=== PATIENT | female | born 1985 | race Caucasian/White ===

== ENCOUNTER → 2016-08-21 | Outpatient (CLI) | payer OTHER ==
[~2016-08-21] MED LIST: LABE100 PO; OXYC1SOL5 PO; PREN0.01 PO
== END ==
LOC: HPND 09:54
PROVIDERS: ATTEND Obstetrics & Gynecology
DX: O09.212 Supervision of pregnancy with history of pre-term labor, second trimester (principal); O09.291 Supervision of pregnancy with other poor reproductive or obstetric history, first trimester; O34.211 Maternal care for low transverse scar from previous cesarean delivery; G43.909 Migraine, unspecified, not intractable, without status migrainosus
CPT/HCPCS: 36416; 76813

== ENCOUNTER → 2016-09-25 | Outpatient (CLI) | payer OTHER | LOC: HPND 08:29 | PROVIDERS: ATTEND Obstetrics & Gynecology | DX: O99.322 Drug use complicating pregnancy, second trimester (principal); O09.292 Supervision of pregnancy with other poor reproductive or obstetric history, second trimester | CPT/HCPCS: 76811 ==

== ENCOUNTER → 2016-10-23 | Outpatient (CLI) | payer OTHER | LOC: HPND 08:12 | PROVIDERS: ATTEND Obstetrics & Gynecology | DX: O09.299 Supervision of pregnancy with other poor reproductive or obstetric history, unspecified trimester (principal); O99.320 Drug use complicating pregnancy, unspecified trimester; O35.1XX0 Maternal care for (suspected) chromosomal abnormality in fetus, not applicable or unspecified; Z3A.00 Weeks of gestation of pregnancy not specified | CPT/HCPCS: 76816; 76825; 76827; 93325 ==

== ENCOUNTER 2017-01-13 10:46 | Observation (INO) | payer OTHER ==
[~2017-01-13] VITALS: Ht 167.6 cm; Wt 79.0 kg
[2017-01-13] MEDS ORDERED: ASPI1TAB57 PO (11:20)
[2017-01-13] MEDS ORDERED: DOCUSATE SODIUM 100 MG CAP PO PRN (11:30)
[2017-01-13] MEDS ORDERED: ONDANSETRON ODT 4 MG TAB PO PRN (11:30)
[2017-01-13] MEDS ORDERED: SODIUM CHLORIDE 0.9% FLUSH 5 ML FLUSH IV FLUSH PRN (11:30)
--- NOTE | 2017-01-13 11:38 | HHI.HP ---
HPI Chief Complaint High blood pressure and the frontal headache Date Seen: Jan 13, 2017 Time Seen: 11:25 Travel History International Travel<30 Days: No Contact w/Intl Traveler<30Days: No Known Affected Area: No History of Present Illness HPI The patient is 31-year-old white female previous [address] Calles for care. Patient presents because of high blood pressure noted today at home. She is detecting blood pressures in the 130s over 90s range. thru her she's from 110s over 60s up until last week when she started having blood pressure rise. She was probably more concerned about the development of frontal headache she's had that for a day or so. She has a history of migraine headaches and is had taken Maxalt for this even in with Dr. Lily king's permission. Today her frontal headache has gotten worse and she presented for evaluation. She denies bleeding or leakage of fluid. Baby is active. heart rate tracing is reactive for 33 weeks. No contractions seen ,. Pt does take 1 baby ASA a day for preeclampsia prevention Weeks Gestation: 33 Para: 1 : 2 Last Menstrual Period: Jan 13, 2017 History Obstetric History Obstetric History Patient has severe preeclampsia with her first and had a at 34 weeks Past Surgical History Narrative Surgical section Social History Alcohol Use: No Tobacco Use: No Substance Abuse: No Allergies-Medications (Allergen,Severity, Reaction): Coded Allergies: No Known Allergies (Unverified Adverse Reaction, Unknown, 01/13/17) Home Meds Reported Medications Aspirin DR (Aspirin 81) 81 Mg Tabdr, 81 MG PO DAILY, TAB 0 Refills 01/13/17 Discontinued Reported Medications Multivit/Min/Fol Ac/Iron/Pren ( Vit ( Plus)) Tab, 1 TAB PO DAILY, TAB 09/05/14 Discontinued Scripts Oxycodone W/ Acetaminophen (Oxycodone/Acetaminophen 5-325 mg/5Ml) 1 Tab Tab, 2 TAB PO Q4H Y for PAIN SCALE 5 TO 10, #60 TAB Prov:Aime Calles MD 09/11/14 Labetalol HCl (Trandate 100 mg Tab) 100 Mg Tab, 100 MG PO BID for hypertension, #60 TAB Prov:Aime Calles MD 09/11/14 Review of Systems General / Constitutional: No: Fever, Weight Gain, Chills, Other Eyes: No: Diploplia, Blurred Vision, Visual changes, Pain, Photophobia HENT: Headaches, No: Vertigo, Lightheadedness Cardiovascular: No: Irregular Rhythm, Chest Pain or Discomfort, Palpitations, Tachycardia, Syncope, Varicosities, Edema, Cyanosis Respiratory: No: Cough, Short of Breath, Other Gastrointestinal: No: Nausea, Vomiting, Diarrhea Genitourinary: No: Decreased Urinary Output, Oliguria Musculoskeletal: No: Limited ROM, Weakness, Cramping, Edema, Pain Skin: No Rash, No Itching, No Dryness, No Lumps, No Change in Pigmentation, No Change in Nails, No Alopecia, No Lesions Neurologic: No: Weakness, Dizziness, Syncope, Focal Abnormalities, Coordination Problem, Headache, Slurred Speech, Seizures Psychiatric: No: Depression, Suicidal Ideations, Homicidal Ideation Endocrine: No: Heat Intolerance, Cold Intolerance, Polydipsia, Polyuria, Other Physical Exam Narrative GENERAL: Well-nourished, well-developed patient. SKIN: Warm and dry. HEAD: Normocephalic and atraumatic. EYES: No scleral icterus. No injection or drainage. ENT: No nasal drainage noted. Mucous membranes pink. Airway patent. NECK: Supple, trachea midline. No JVD. CARDIOVASCULAR: Regular rate and rhythm without murmurs, gallops, or rubs. RESPIRATORY: Breath sounds equal bilaterally. No accessory muscle use. BREASTS: Bilateral exam showed no masses , no retractions, no nipple discharge. ABDOMEN/GI: Abdomen soft, non-tender, bowel sounds present, no rebound, no guarding Gravid to [-33] weeks size Fundal Height: [-33] GENITOURINARY: ] Membranes: [intact ] Uterine Contractions: [none-] FHT's: Category: [1-] Baseline: [133-] Reactive: [-yes] Variability: [-mod] Decels: [0-] EXTREMITIES: No cyanosis or edema. BACK: Nontender without obvious deformity. No CVA tenderness. NEUROLOGICAL: Awake and alert. Motor and sensory grossly within normal limits. Five out of 5 muscle strength in all muscle groups. Normal speech. DTRs 2+ Caprini VTE Risk Assessment Caprini VTE Risk Assessment: No/Low Risk (score <= 1) Caprini Risk Assessment Model Point Value = 1 Point Value = 2 Point Value = 3 Point Value = 5 Age 41-60 Minor surgery BMI > 25 kg/m2 Swollen legs Varicose veins or History of unexplained or recurrent spontaneous Oral contraceptives or hormone replacement Sepsis (< 1 month) Serious lung disease, including pneumonia (< 1 month) Abnormal pulmonary function Acute myocardial infarction Congestive heart failure (< 1 month) History of inflammatory bowel disease Medical patient at bed rest Age 61-74 Arthroscopic surgery Major open surgery (> 45 min) Laparoscopic surgery (> 45 min) Malignancy Confined to bed (> 72 hours) Immobilizing plaster cast Central venous access Age >= 75 History of VTE Family history of VTE Factor V Leiden Prothrombin [id number] Lupus anticoagulant Anticardiolipin antibodies Elevated serum homocysteine Heparin-induced thrombocytopenia Other congenital or acquired thrombophilia Stroke (< 1 month) Elective arthroplasty Hip, pelvis, or leg fracture Acute spinal cord injury (< 1 month) Prophylaxis Regimen Total Risk Factor Score Risk Level Prophylaxis Regimen 0-1 Low Early ambulation 2 Moderate Order ONE of the following: *Sequential Compression Device (SCD) *Heparin 5000 units SQ BID 3-4 Higher Order ONE of the following medications: *Heparin 5000 units SQ TID *Enoxaparin/Lovenox 40 mg SQ daily (WT < 150 kg, CrCl > 30 mL/min) *Enoxaparin/Lovenox 30 mg SQ daily (WT < 150 kg, CrCl > 10-29 mL/min) *Enoxaparin/Lovenox 30 mg SQ BID (WT < 150 kg, CrCl > 30 mL/min) AND/OR *Sequential Compression Device (SCD) 5 or more Highest Order ONE of the following medications: *Heparin 5000 units SQ TID (Preferred with Epidurals) *Enoxaparin/Lovenox 40 mg SQ daily (WT < 150 kg, CrCl > 30 mL/min) *Enoxaparin/Lovenox 30 mg SQ daily (WT < 150 kg, CrCl > 10-29 mL/min) *Enoxaparin/Lovenox 30 mg SQ BID (WT < 150 kg, CrCl > 30 mL/min) AND *Sequential Compression Device (SCD) Data Data Orders Orders Ob (2e) Additional Admit Info (01/13/17 11:15) Place In Observation (01/13/17 ) Vital Signs (Adult) Q5MX4,Q15MX4,Q30MX2,Q1H (01/13/17 11:15) Resp Pulse Oximetry (01/13/17 ) Activity Bed Rest (01/13/17 11:15) Intake + Output Q1H (01/13/17 11:15) Notify Dr. Campoverde (01/13/17 11:15) Heart CONTINUOUS (01/13/17 11:15) Urinary Catheter Management GONZALO.Q8H (01/13/17 11:15) ^ Check Deep Tendon Reflexes Q1H (01/13/17 11:15) Sodium Chloride 0.9% Flush (Ns Flush) (01/13/17 11:30) Sodium Chloride 0.9% Flush (Ns Flush) (01/13/17 21:00) Nifedipine (Procardia) (01/13/17 11:15) Nifedipine (Procardia) (01/13/17 11:45) Calcium Gluconate Inj (Calcium Gluconate (01/13/17 11:15) Acetaminophen (Tylenol) (01/13/17 11:30) Ondansetron Odt (Zofran Odt) (01/13/17 11:15) Docusate Sodium (Colace) (01/13/17 11:15) Bokxpnrr-Omi-Amhjj-Iron Prenat (Stuartna (01/14/17 09:00) Zolpidem (Ambien) (01/13/17 21:00) Cbc No Diff, Includes Plts (01/13/17 11:15) Comprehensive Metabolic Panel (01/13/17 11:15) Uric Acid (01/13/17 11:15) Urinalysis - C+S If Indicated (01/13/17 11:15) Total Protein 24hr Urine (01/13/17 11:15) Creatinine 24 Hr Urine (01/13/17 11:15) Assessment/Plan Assessment and Plan The patient is 31-year-old white female at [address] Lily king's who presents with elevated blood pressures today and developing frontal headache, her blood pressures at home and here in the 130s over 90s, currently do not have a urine sample to check for protein but will begin a 24-hour urine collection, she has no other symptoms or signs. She denies visual changes or right upper quadrant pain swelling. heart rate is reactive she is not ramila. Patient says she scheduled have an ultrasound done in [address] Calles's office Impression- -induced hypertension at 33 weeks in a patient that has a history of severe preeclampsia with her first baby and at 34 weeks for that problem, spell of frontal headache and has a history of frontal headaches with migraine characteristics Plan--23 observation for collection of a 24-hour urine for protein, check [facility] lab for blood work, and observe blood pressures. Jean Marcum II, MD Jan 13, 2017 11:38
[2017-01-13 11:52] LABS: HEMATOCRIT 37.2 % (35.0-46.0); MEAN CELL VOLUME 95.6 FL (80.0-100.0); MEAN CORPUSCULAR HEMOGLOBIN 32.9 PG (27.0-34.0); MEAN CORPUSCULAR HGB CONC 34.4 % (32.0-36.0); PLATELET COUNT 221 TH/MM3 (150-450); RED CELL DISTRIBUTION WIDTH 14.1 % (11.6-17.2); REVIEW FLAG FINAL
[2017-01-13] MEDS ORDERED: CALCIUM GLUCONATE 10% 1 GM/10 ML VIAL IV PUSH PRN (12:00)
[2017-01-13] MEDS ORDERED: NIFEdipine 10 MG CAP PO PRN ×2 (12:00)
[2017-01-13 12:12] LABS: ANION GAP 8 MEQ/L (5-15); AST (GOT) 14 U/L (15-37); BICARBONATE 24.6 MEQ/L (21.0-32.0); BLOOD UREA NITROGEN 7 MG/DL (7-18); CHLORIDE 105 MEQ/L (98-107); GLOMERULAR FILTRATION RATE 87 ML/MIN (>89); POTASSIUM 4.7 MEQ/L (3.5-5.1); SODIUM (NA) 138 MEQ/L (136-145); URIC ACID 4.4 MG/DL (2.6-6.0)
[2017-01-13 12:16] LABS: ALKALINE PHOSPHATASE 141 U/L (45-117); ALT (GPT) 24 U/L (10-53); TOTAL BILIRUBIN ADULT 0.3 MG/DL (0.2-1.0)
[2017-01-13] MEDS ORDERED: FERR1TAB37 PO (12:47)
[2017-01-13] MEDS ORDERED: Tylenol PO (12:49)
[2017-01-13] MEDS ORDERED: PNV11TAB PO (12:50)
[2017-01-13 13:08] LABS: BACTERIA, URINE OCC /hpf; BLOOD, URINE NEG (NEG); GLUCOSE,URINE NEG (NEG); HYALINE CAST, URINE 1 /lpf (RARE); KETONE, URINE NEG (NEG); NITRITE,URINE NEG (NEG); PH, URINE 6.5 (5.0-8.5); SQUAMOUS EPITHELIAL CELL URINE 3 /hpf (0-5); TRANSITIONAL EPI CELLS, URINE <1 /hpf; URINE COLOR YELLOW (YELLW/STRAW)
[2017-01-13 13:09] LABS: COMMENT (UR) CULT NOT INDICATED; CULTURE IF INDICATED CULT NOT INDICATED
[2017-01-13] MEDS: BETAMETHASONE SOD PHOS/ACETATE SUSP 30 MG/5 ML VIAL IM SCH (14:26)
[2017-01-13 15:37] VITALS: BP 122/89; PULSE 101; RESP 18; TEMP 98.7
[2017-01-13] MEDS: ACETAMINOPHEN 325 MG TAB PO PRN ×2 (15:48→22:05)
[2017-01-13 19:30] VITALS: RESP 18; TEMP 97.6
[2017-01-13 19:34] VITALS: BP 129/80; PULSE 110
[2017-01-13 19:35] VITALS: PULSE 108
[2017-01-13] MEDS ORDERED: SODIUM CHLORIDE 0.9% FLUSH 5 ML FLUSH IV FLUSH SCH (21:00)
[2017-01-13] MEDS ORDERED: ZOLPIDEM TARTRATE 5 MG TAB PO PRN (21:00)
[2017-01-13 22:02] VITALS: BP 123/72; PULSE 101
[2017-01-14] VITALS (13 sets, daily range): BP systolic 119–135; BP diastolic 74–82; PULSE 86–117; RESP 18; TEMP 97.6–97.8
[2017-01-14] MEDS: ACETAMINOPHEN 325 MG TAB PO PRN (04:21)
--- NOTE | 2017-01-14 07:36 | PD.OB.ANTE ---
Subjective Interval History Pt doing well, occ headache, no other co Objective Vital Signs Vital Signs Date Time Temp Pulse Resp B/P (MAP) Pulse Ox O2 Delivery O2 Flow Rate FiO2 01/14/17 04:11 97.7 89 119/74 (89) 01/14/17 04:10 18 01/14/17 00:31 86 121/77 (92) 01/14/17 00:30 97.6 01/13/17 22:02 101 123/72 (89) 01/13/17 19:35 108 01/13/17 19:34 110 129/80 (96) 01/13/17 19:30 18 01/13/17 19:30 97.6 01/13/17 15:37 98.7 01/13/17 15:37 101 18 122/89 (100) Lab & Micro Results Test 01/13/17 11:26 01/13/17 11:32 White Blood Count 14.0 TH/MM3 Red Blood Count 3.90 MIL/MM3 Hemoglobin 12.8 GM/DL Hematocrit 37.2 % Mean Corpuscular Volume 95.6 FL Mean Corpuscular Hemoglobin 32.9 PG Mean Corpuscular Hemoglobin Concent 34.4 % Red Cell Distribution Width 14.1 % Platelet Count 221 TH/MM3 Mean Platelet Volume 8.6 FL Blood Urea Nitrogen 7 MG/DL Creatinine 0.77 MG/DL Random Glucose 83 MG/DL Total Protein 7.3 GM/DL Albumin 2.7 GM/DL Calcium Level 9.5 MG/DL Uric Acid 4.4 MG/DL Alkaline Phosphatase 141 U/L Aspartate Amino Transf (AST/SGOT) 14 U/L Alanine Aminotransferase (ALT/SGPT) 24 U/L Total Bilirubin 0.3 MG/DL Sodium Level 138 MEQ/L Potassium Level 4.7 MEQ/L Chloride Level 105 MEQ/L Carbon Dioxide Level 24.6 MEQ/L Anion Gap 8 MEQ/L Estimat Glomerular Filtration Rate 87 ML/MIN Urine Color YELLOW Urine Turbidity HAZY Urine pH 6.5 Urine Specific Butterfield 1.012 Urine Protein TRACE mg/dL Urine Glucose (UA) NEG mg/dL Urine Ketones NEG mg/dL Urine Occult Blood NEG Urine Nitrite NEG Urine Bilirubin NEG Urine Urobilinogen LESS THAN 2.0 MG/DL Urine Leukocyte Esterase LARGE Urine RBC 2 /hpf Urine WBC 3 /hpf Urine Squamous Epithelial Cells 3 /hpf Urine Transitional Epithelial Cells <1 /hpf Urine Bacteria OCC /hpf Urine Hyaline Casts 1 /lpf Microscopic Urinalysis Comment CULT NOT INDICATED Physical Exam GENERAL: Well-nourished, well-developed patient. CARDIOVASCULAR: Regular rate and rhythm without murmurs, gallops, or rubs. RESPIRATORY: Breath sounds equal bilaterally. No accessory muscle use. ABDOMEN/GI: Abdomen soft, non-tender. Fundus: [-] GENITOURINARY: External Genitalia: intact and normal in appearance Cervix: [-] Dilatation: [-] Effacement: [-] Station: [-] Presentation: [-] Membranes: [-] Uterine Contractions: [-] FHT's: Category: [-] Baseline: [-] Reactive: [-] Variability: [-] Decels: [-] EXTREMITIES: No cyanosis or edema, non-tender, without signs of DVT. Assessment and Plan Assessment and Plan IUP at 33 + wks with hx of severe preeclampsia with slightly elevated BP yesterday and headache...work up so far entirely normal, will await 24 hour urine today, second dose of steroids today, will remain on bed rest and stop working at home if result ok, fioricet prn. Judy Krishnan MD Jan 14, 2017 07:36
[2017-01-14] MEDS ORDERED: MULTIVIT/MIN/PREN/FOL AC/IRON PRENATAL TAB PO SCH (09:00)
[2017-01-14] MEDS ORDERED: ACETAMIN 325 MG/BUTALBITAL 50 MG/CAFFEINE 40 MG TAB PO PRN (10:15)
[2017-01-14] MEDS ORDERED: ACET-898 PO (11:03)
[2017-01-14 13:35] LABS: CREAT 24 TIMED 50.9 MG/DL
[2017-01-14] MEDS: BETAMETHASONE SOD PHOS/ACETATE SUSP 30 MG/5 ML VIAL IM SCH (15:00)
[2017-01-14] MEDS ORDERED: BUTA1CAP PO (16:09)
== END 2017-01-14 16:34 | disposition home or self-care (01) ==
LOC: HOBED 10:46 → H2EA 11:20
PROVIDERS: ADMIT Obstetrics & Gynecology; ATTEND Obstetrics & Gynecology
DX: O13.3 Gestational [pregnancy-induced] hypertension without significant proteinuria, third trimester (principal); Z3A.33 33 weeks gestation of pregnancy; R51 Headache
CPT/HCPCS: 36415; 76816; 76819; 76820; 80053; 81001; 82570; 84157; 84550; 85027; 96372; 99285; G0378; J0702

== ENCOUNTER 2017-01-21 17:47 | Inpatient (IN) | payer OTHER ==
[2017-01-21] VITALS (13 sets, daily range): BP systolic 107–148; BP diastolic 60–105; PULSE 75–92; RESP 18–20; TEMP 97.9; O2SAT 100
[~2017-01-21] VITALS: Ht 167.6 cm; Wt 79.5 kg
[2017-01-21] MEDS: LACTATED RINGER'S 1000 ML INJ 1,000 ML IV SCH ×3 (13:04→23:04)
[~2017-01-21 17:47] MED LIST changes: +BUTA1CAP PO; -LABE100 PO; -OXYC1SOL5 PO; +PNV11TAB PO; -PREN0.01 PO
[2017-01-21] MEDS ORDERED: OXYTOCIN 30 UNITS-500ML PREMIX 500 ML IV PRN (18:15)
[2017-01-21] MEDS ORDERED: ACETAMIN 325 MG/BUTALBITAL 50 MG/CAFFEINE 40 MG TAB PO ONE (19:45)
[2017-01-21 20:01] LABS: HEMATOCRIT 37.1 % (35.0-46.0); MEAN CORPUSCULAR HEMOGLOBIN 32.3 PG (27.0-34.0); MEAN CORPUSCULAR HGB CONC 34.4 % (32.0-36.0); PLATELET COUNT 333 TH/MM3 (150-450); RED BLOOD COUNT 3.95 MIL/MM3 (4.00-5.30); RED CELL DISTRIBUTION WIDTH 13.9 % (11.6-17.2); WHITE BLOOD COUNT 12.6 TH/MM3 (4.0-11.0)
[2017-01-21 20:12] LABS: BACTERIA, URINE RARE /hpf; BLOOD, URINE NEG (NEG); COMMENT (UR) CULT NOT INDICATED; CULTURE IF INDICATED CULT NOT INDICATED; GLUCOSE,URINE NEG (NEG); KETONE, URINE NEG (NEG); MUCUS URINE FEW /lpf (OCC); NITRITE,URINE NEG (NEG); PH, URINE 6.5 (5.0-8.5); SQUAMOUS EPITHELIAL CELL URINE 2 /hpf (0-5); URINE COLOR YELLOW (YELLW/STRAW)
[2017-01-21 20:17] LABS: REVIEW FLAG FINAL
[2017-01-21 20:21] LABS: ANION GAP 13 MEQ/L (5-15); AST (GOT) 15 U/L (15-37); BICARBONATE 20.1 MEQ/L (21.0-32.0); BLOOD UREA NITROGEN 10 MG/DL (7-18); CHLORIDE 103 MEQ/L (98-107); GLOMERULAR FILTRATION RATE 81 ML/MIN (>89); SODIUM (NA) 136 MEQ/L (136-145)
[2017-01-21 20:24] LABS: ALKALINE PHOSPHATASE 149 U/L (45-117); ALT (GPT) 17 U/L (10-53); TOTAL BILIRUBIN ADULT 0.2 MG/DL (0.2-1.0)
[2017-01-21 20:39] LABS: URIC ACID 5.3 MG/DL (2.6-6.0)
[2017-01-21] MEDS ORDERED: LACTATED RINGER'S 1000 ML INJ 1,000 ML IV SCH (20:51)
[2017-01-21] MEDS ORDERED: LACTATED RINGER'S 1000 ML INJ 1,000 ML IV ONE (21:34)
[2017-01-21] MEDS ORDERED: CALCIUM GLUCONATE 10% 1 GM/10 ML VIAL IV PUSH PRN (21:45)
[2017-01-21] MEDS ORDERED: KETOROLAC TROMETHAMINE 60 MG/2 ML (IM) VIAL IM PRN (21:45)
[2017-01-21] MEDS ORDERED: OXYTOCIN 30 UNITS-500ML PREMIX 500 ML IV ONE (21:45)
[2017-01-21] MEDS ORDERED: SODIUM CHLORIDE 0.9% FLUSH 10 ML FLUSH IV FLUSH PRN (21:45)
[2017-01-21] MEDS ORDERED: MAGNESIUM SULFATE 4 GM PREMIX 100 ML IV ONE (21:45)
[2017-01-21] MEDS ORDERED: DOCUSATE SODIUM 50 MG/SENNA 8.6 MG TAB PO PRN (21:45)
[2017-01-21] MEDS ORDERED: ZOLPIDEM TARTRATE 5 MG TAB PO PRN (21:45)
[2017-01-21] MEDS ORDERED: LABETALOL HCL 100 MG/20 ML VIAL IV PUSH PRN ×2 (21:45→22:00)
[2017-01-21] MEDS ORDERED: SIMETHICONE 80 MG CHEWABLE TAB PO PRN (21:45)
[2017-01-21] MEDS: ACETAMINOPHEN 1000 MG/100 ML VIAL IV SCH (21:45)
[2017-01-21] MEDS ORDERED: NIFEdipine 10 MG CAP PO PRN ×3 (21:45→22:30)
[2017-01-21] MEDS ORDERED: hydrALAZINE HCL 20 MG/ML VIAL IV PUSH PRN (21:45)
[2017-01-21] MEDS ORDERED: MEASLES, MUMPS, RUBELLA VACCINE 0.5 ML VIAL SQ ONE (21:45)
[2017-01-21] MEDS ORDERED: oxyCODONE/ACETAMINOPHEN 5 MG/325 MG TAB PO PRN ×2 (21:45)
[2017-01-21] MEDS ORDERED: ACETAMINOPHEN 1000 MG/100 ML 100 ML IV ONE (21:48)
--- NOTE | 2017-01-21 22:11 | MH ---
cc: ARABELLA AHMADI DATE OF ADMISSION 01/21/2017 ADMISSION DIAGNOSIS at 35 weeks, severe preeclampsia, previous . HISTORY OF PRESENT ILLNESS The patient is a 31-year-old white female para 0-1-0-1, LMP of 05/20/2016, EDC of 02/24/2017 by dates, 02/27/2017 by ultrasound. Her first delivery was by at 34-35 weeks for severe preeclampsia characterized by severe headache. She developed an increase in blood pressure, was admitted here for observation on 01/13/2017. Her labs were normal except for 24-hour urine showing protein of 491 mg in 24 hours. She was given steroids x2, discharged home on bedrest. She awoke yesterday morning with severe headache. She took maxalt with only relief. Took it again last night and awoke this morning with persistent left-sided headache and this failed to improve with Tylenol, Fioricet, hydration and caffeine. It was very reminiscent of the severe headache she had with her last that prompted delivery. Her blood pressure is in the 130s over 100 and 140/90 range. She denies visual changes, abdominal pain or edema. She had one episode of nausea and vomiting yesterday. She had some loose stools attributed to Mylanta. PAST MEDICAL HISTORY Previous surgery in 2014 for severe preeclampsia. ALLERGIES NONE. TRANSFUSIONS None. PAST MEDICAL HISTORY Migraines. SOCIAL HISTORY She is . 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 Alcohol, tobacco and drugs are none. FAMILY HISTORY Noncontributory. PHYSICAL EXAMINATION GENERAL: Reveals a gravid white female with headache discomfort left frontal. HEENT: Exam is normal. CHEST: The chest is clear. HEART: Regular rate. . ABDOMEN: Gravid. EFW of 2500 grams. PELVIC: Examination deferred. EXTREMITIES: Normal. Reflexes 2+ and equal. IMAGING Ultrasounds have shown appropriate growth. She has been on baby aspirin prophylaxis. Placenta is posterior. PLAN I recommended that we proceed with delivery. She has been n.p.o. for over 8 hours. I explained the risks of severe preeclampsia with stroke, demise, and feel the risk of prematurity is outweighed by the risk of severe preeclampsia and she would like to proceed. MD SHANICE Hilton/KK /9:30 PM /9:44 PM
--- NOTE | 2017-01-21 22:29 | PD ---
HPI Chief Complaint Headache Date Seen: Jan 21, 2017 Time Seen: 19:45 Travel History International Travel<30 Days: No Contact w/Intl Traveler<30Days: No Known Affected Area: No History of Present Illness HPI 31-year-old , IUP at 34.5 care complicated by history of preeclampsia with delivery at 35 weeks with prior , preeclampsia diagnosed 01/13/17, history of migraine headaches The patient presents reporting a persistent headache that started yesterday morning. She reports she woke up with a headache. She tried drinking caffeine without relief. The 10:00 last night she took Maxalt which caused her headache to resolve however she woke up with a headache at 7 AM citric Maxalt again. She reports that the headache resolved until 9 AM when it returned. She took Tylenol thousand milligrams, followed by Fioricet about an hour later after the return of the headache but without any result. She continued drink caffeine without improvement of the headache. She denies any epigastric pain, right upper quadrant pain. She denies any visual changes. She reports good movement. She denies any leaking of fluid, vaginal bleeding or painful contractions. Weeks Gestation: 34 Para: 1 : 2 History Past Medical History Medical History: Denies Significant Hx Obstetric History Obstetric History 101 delivery at 35 weeks for preeclampsia Past Surgical History Narrative Surgical delivery 1 Family History Narrative Family History Dementia Social History Alcohol Use: No Tobacco Use: No Substance Abuse: No Allergies-Medications (Allergen,Severity, Reaction): Coded Allergies: No Known Allergies (Unverified Allergy, Unknown, 01/13/17) Home Meds Reported Medications Ezmcxzjrwb-Ldspfnuibhhiw-Mfynirte (Fioricet) 50-300-40 Mg Cap, 1 CAP PO Q4-6H Y for HEADACHE, CAP 0 Refills 01/14/17 Pvb900/FA/Omega3/Dha/Fish Oil ( Gummies) 400 Mcg-32.5 Mg (25 Mg-7.5 Mg) Tab.chew, 2 CHEW PO DAILY 01/13/17 Discontinued Reported Medications Acetaminophen (Acetaminophen Extra Strength) 500 Mg Tablet, 500 MG PO Q4HR Y for HEADACHE 01/14/17 Ferrous Sulfate (Slow Fe) 142 Mg (45 Mg Iron) Tablet.er, 1 TAB PO DAILY 01/13/[address] (Aspirin 81) 81 Mg Tabdr, 81 MG PO DAILY, TAB 0 Refills 01/13/17 Review of Systems Except as stated in HPI: all other systems reviewed are Neg Neurologic: Headache Physical Exam Vital Signs Date Time Temp Pulse Resp B/P (MAP) Pulse Ox O2 Delivery O2 Flow Rate FiO2 01/21/17 21:15 18 01/21/17 20:45 18 01/21/17 20:45 80 148/105 (119) 01/21/17 20:30 86 132/93 (106) 01/21/17 20:15 86 18 131/103 (112) 01/21/17 20:00 92 138/96 (110) 01/21/17 19:45 91 18 128/96 (107) 01/21/17 19:37 88 134/97 (109) 01/21/17 19:15 18 Narrative GENERAL: Well-nourished, well-developed patient. SKIN: Warm and dry. HEAD: Normocephalic and atraumatic. EYES: No scleral icterus. No injection or drainage. ENT: No nasal drainage noted. Mucous membranes pink. Airway patent. NECK: Supple, trachea midline. No JVD. CARDIOVASCULAR: Regular rate and rhythm without murmurs, gallops, or rubs. RESPIRATORY: Breath sounds equal bilaterally. No accessory muscle use. BREASTS: Deferred ABDOMEN/GI: Abdomen soft, non-tender, bowel sounds present, no rebound, no guarding Gravid GENITOURINARY: Deferred FHT's: heart tones with baseline in the 130s, moderate long-term variability, good accelerations, no decelerations with a reactive NST and category 1 tracing EXTREMITIES: No cyanosis or edema. BACK: Nontender without obvious deformity. No CVA tenderness. NEUROLOGICAL: Awake and alert. Motor and sensory grossly within normal limits. Five out of 5 muscle strength in all muscle groups. Normal speech. Psychiatric: Grossly normal memory and affect Muscle skeletal: Grossly normal range of motion, gait, muscle strength Data Data Orders Orders Vital Signs (Adult) .ON ADMISSION (01/21/17 18:57) ^ Labor Status (01/21/17 18:57) Urinalysis - C+S If Indicated (01/21/17 18:57) ^ Non Stress Test (01/21/17 18:57) Cbc No Diff, Includes Plts (01/21/17 18:57) Comprehensive Metabolic Panel (01/21/17 18:57) Uric Acid (01/21/17 18:57) Zvhm-Nyxem-Bkze 325-50-40 Mg (Fioricet 3 (01/21/17 19:45) Type And Screen (01/21/17 20:51) Lactated Ringer's 1000 Ml Inj (Lr 1000 M (01/21/17 20:51) Ob (2e) Additional Admit Info (01/21/17 21:27) Admit To Inpatient (01/21/17 ) Vital Signs (Adult) .ON ADMISSION (01/21/17 21:34) Activity Oob Ad Sussy (01/21/17 21:34) Heart (01/21/17 21:34) Urinary Catheter Management GONZALO.Q8H (01/21/17 21:34) ^ Preps (01/21/17 21:34) Scd / Surya / Foot Pump GONZALO.QSHIFT (01/21/17 21:34) Lactated Ringer's 1000 Ml Inj (Lr 1000 M (01/21/17 21:34) Lactated Ringer's 1000 Ml Inj (Lr 1000 M (01/21/17 22:04) Cefazolin 2 Gm Premix (Ancef 2 Gm Premix (01/21/17 22:45) Citric Acid-Sodium Citrate Liq (Bicitra (01/21/17 23:15) Complete Blood Count With Diff (01/21/17 21:34) Vital Signs (Adult) Q4HX24, Q8H (01/21/17 21:35) Activity Bed Rest (01/21/17 21:35) ^ Discontinue (01/22/17 21:35) Remove Dressing (01/22/17 21:35) ^ Binder (01/21/17 ) ^ Rhogam (01/21/17 21:35) ^ Massage (01/21/17 21:35) Diet Liquid (01/22/17 Breakfast) Lactated Ringer's 1000 Ml Inj (Lr 1000 M (01/21/17 13:04) Oxytocin 30 Units-500ml Premix (Pitocin (01/21/17 21:45) Oxytocin 30 Units-500ml Premix (Pitocin (01/21/17 18:15) Simethicone Chew (Mylicon Chew) (01/21/17 21:45) Acetaminophen 1000 Mg/100 Ml (Ofirmev 10 (01/21/17 21:45) Ibuprofen (Motrin) (01/21/17 21:45) Ketorolac Inj (Toradol Inj) (01/21/17 21:45) Oxycodone-Acetamin 5-325 Mg (Percocet (01/21/17 21:45) Oxycodone-Acetamin 5-325 Mg (Percocet (01/21/17 21:45) Docusate Sodium-Senna (Armida-Colace) (01/21/17 21:45) Zolpidem (Ambien) (01/21/17 21:45) Vjdknad-Aksbh-Tntsthi Inj (M-M-R Ii Inj) (01/21/17 21:45) Qjez-Wfo-Bnoldd (Booster) Inj (Boostrix (01/23/17 09:00) Complete Blood Count With Diff (01/22/17 06:00) Ondansetron Inj (Zofran Inj) (01/21/17 21:45) Remove Urinary Catheter .Once (01/22/17 21:35) ^ Other Nursing Orders (01/21/17 21:35) Basic Metabolic Panel (Bmp) (01/22/17 06:00) Activity Bed Rest (01/21/17 21:37) Intake + Output Q1H (01/21/17 21:37) Notify Parameters (01/21/17 21:37) Urinary Catheter Management GONZALO.Q8H (01/21/17 21:37) ^ Check Deep Tendon Reflexes Q1H (01/21/17 21:37) Lactated Ringer's 1000 Ml Inj (Lr 1000 M (01/21/17 21:37) Sodium Chloride 0.9% Flush (Ns Flush) (01/21/17 21:45) Sodium Chloride 0.9% Flush (Ns Flush) (01/22/17 09:00) Magnesium Sulfate 40 Gm Premix (Magnesiu (01/21/17 21:37) Nifedipine (Procardia) (01/21/17 21:45) Nifedipine (Procardia) (01/21/17 22:00) Nifedipine (Procardia) (01/21/17 22:30) Labetalol Inj (Trandate Inj) (01/21/17 21:45) Labetalol Inj (Trandate Inj) (01/21/17 22:00) Hydralazine Inj (Apresoline Inj) (01/21/17 21:45) Calcium Gluconate Inj (Calcium Gluconate (01/21/17 21:45) Magnesium Sulfate 4 Gm Premix (Magnesium (01/21/17 21:45) Acetaminophen 1000 Mg/100 Ml (Ofirmev 10 (01/21/17 21:48) Cefazolin Inj (Ancef Inj) (01/22/17 06:00) Labs Laboratory Tests Test 01/21/17 18:30 White Blood Count 12.6 Red Blood Count 3.95 Hemoglobin 12.8 Hematocrit 37.1 Mean Corpuscular Volume 94.0 Mean Corpuscular Hemoglobin 32.3 Mean Corpuscular Hemoglobin Concent 34.4 Red Cell Distribution Width 13.9 Platelet Count 333 Mean Platelet Volume 8.5 Urine Color YELLOW Urine Turbidity CLEAR Urine pH 6.5 Urine Specific Mcintosh 1.014 Urine Protein TRACE Urine Glucose (UA) NEG Urine Ketones NEG Urine Occult Blood NEG Urine Nitrite NEG Urine Bilirubin NEG Urine Urobilinogen LESS THAN 2.0 Urine Leukocyte Esterase SMALL Urine RBC 1 Urine WBC LESS THAN 1 Urine Squamous Epithelial Cells 2 Urine Bacteria RARE Urine Mucus FEW Microscopic Urinalysis Comment CULT NOT INDICATED Blood Urea Nitrogen 10 Creatinine 0.82 Random Glucose 88 Total Protein 7.6 Albumin 2.8 Calcium Level 9.4 Uric Acid 5.3 Alkaline Phosphatase 149 Aspartate Amino Transf (AST/SGOT) 15 Alanine Aminotransferase (ALT/SGPT) 17 Total Bilirubin 0.2 Sodium Level 136 Potassium Level 4.0 Chloride Level 103 Carbon Dioxide Level 20.1 Anion Gap 13 Estimat Glomerular Filtration Rate 81 MDM Plan Assessment/plan: 1. IUP at 34.5 2. Preeclampsia: Patient now with persistent headache for 2 days and elevated blood pressures during evaluation. She was diagnosed with preeclampsia in 01/13. She was given 2 Fioricet in the OB ED with minimal improvement in her headache. HELLP labs were performed with normal platelets and normal AST/ALT. Dr. Calles was notified and will come to speak with the patient. 3. well-being: Reassuring testing with reactive NST and category 1 heart rate tracing 4. Prior delivery. Patient is aware that she will be delivered by repeat delivery if the decision is made to proceed with delivery Faviola Acevedo MD Jan 21, 2017 22:29
[2017-01-21] MEDS ORDERED: ceFAZolin 2 GM PREMIX 50 ML IV SCH (22:45)
[2017-01-21] MEDS ORDERED: CITRIC ACID-SODIUM CITRATE LIQ 30 ML UDC PO SCH (23:15)
[2017-01-21] MEDS ORDERED: MAGNESIUM SULFATE 40 GM PREMIX 1,000 ML ONE (23:23)
[2017-01-21] MEDS ORDERED: MAGNESIUM SULFATE 4 GM PREMIX 100 ML ONE (23:23)
[2017-01-21] MEDS: MAGNESIUM SULFATE 40 GM PREMIX 1,000 ML IV SCH (23:31)
--- NOTE | 2017-01-21 23:33 | HHI.PR ---
Subjective Remarks NST report Indications: IUP at 34 weeks, preeclampsia, persistent headache, elevated blood pressures heart rate baseline in the 130s with moderate long-term variability, good accelerations, no decelerations noted. This category 1 heart rate tracing and a reactive NST. Follow-up: Patient will be admitted to Dr. reynoso Final diagnosis: IUP at 34 weeks, preeclampsia with persistent headache, elevated blood pressures, reassuring testing Objective Vital Signs Date Time Temp Pulse Resp B/P (MAP) Pulse Ox O2 Delivery O2 Flow Rate FiO2 01/21/17 23:19 100 01/21/17 23:18 78 20 107/60 (76) 01/21/17 23:10 82 20 116/66 (83) 100 01/21/17 23:10 97.9 01/21/17 21:15 18 01/21/17 20:45 18 01/21/17 20:45 80 148/105 (119) 01/21/17 20:30 86 132/93 (106) 01/21/17 20:15 86 18 131/103 (112) 01/21/17 20:00 92 138/96 (110) 01/21/17 19:45 91 18 128/96 (107) 01/21/17 19:37 88 134/97 (109) 01/21/17 19:15 18 Result Diagram: 01/21/17182901/21/171829 Faviola Ingram MD Jan 21, 2017 23:33
[2017-01-22] VITALS (44 sets, daily range): BP systolic 91–129; BP diastolic 55–95; PULSE 61–88; RESP 16–22; TEMP 97.7–98.7; O2SAT 100
[2017-01-22] MEDS ORDERED: KETOROLAC TROMETHAMINE 60 MG/2 ML (IM) VIAL IM ONE (00:10)
[2017-01-22] MEDS: ONDANSETRON HCL 4 MG/2 ML VIAL IVP PRN ×2 (01:15→05:29)
[2017-01-22] MEDS ORDERED: EPIDURAL-NALOXONE HCL 0.4 MG/ML AMP IV PUSH PRN (02:45)
[2017-01-22] MEDS ORDERED: EPIDURAL-DIPHENHYDRAMINE HCL 50 MG/ML VIAL IV PUSH PRN (02:45)
[2017-01-22] MEDS ORDERED: EPIDURAL-DIPHENHYDRAMINE HCL 50 MG CAP PO PRN (02:45)
[2017-01-22] MEDS ORDERED: EPIDURAL-DO NOT ADMINISTER ANTICOAGULANTS PRN (02:45)
[2017-01-22] MEDS ORDERED: EPIDURAL-NO SYSTEMIC NARCOTICS PRN (02:45)
[2017-01-22] MEDS: ACETAMINOPHEN 1000 MG/100 ML VIAL IV SCH ×2 (05:28→13:54)
[2017-01-22 06:00] LABS: AUTOMATED NEUTROPHIL # 14.4 TH/MM3 (1.8-7.7); BASOPHIL # 0.1 TH/MM3 (0-0.2); BASOPHIL % 0.5 % (0.0-2.0); EOSINOPHIL # 0.1 TH/MM3 (0-0.4); EOSINOPHIL % 0.5 % (0.0-4.0); HEMATOCRIT 36.6 % (35.0-46.0); HEMO FLAGS DIFF FINAL; LYMPH % 13.7 % (9.0-44.0); LYMPHOCYTE # 2.5 TH/MM3 (1.0-4.8); MEAN CELL VOLUME 94.2 FL (80.0-100.0); MEAN CORPUSCULAR HEMOGLOBIN 32.1 PG (27.0-34.0); MEAN CORPUSCULAR HGB CONC 34.1 % (32.0-36.0); MONO % 5.7 % (0.0-8.0); NEUT % 79.6 % (16.0-70.0); PLATELET COUNT 261 TH/MM3 (150-450); RED BLOOD COUNT 3.88 MIL/MM3 (4.00-5.30); RED CELL DISTRIBUTION WIDTH 14.2 % (11.6-17.2)
[2017-01-22 06:22] LABS: BICARBONATE 24.1 MEQ/L (21.0-32.0); MAGNESIUM 5.5 MG/DL (1.5-2.5); POTASSIUM 4.2 MEQ/L (3.5-5.1)
--- NOTE | 2017-01-22 07:05 | MP ---
cc: ARABELLA AHMADI MD DATE OF SURGERY 01/21/2017 PREOPERATIVE DIAGNOSIS 1. 35 weeks, severe preeclampsia. 2. Previous . POSTOPERATIVE DIAGNOSIS 1. 35 weeks, severe preeclampsia. 2. Previous . 3. Delivered PROCEDURE Repeat low transverse section. ANESTHESIA Spinal SURGEON Arabella Ahmadi MD ESTIMATED BLOOD LOSS About 500 cc FLUIDS 1.7 liters crystalloid OBJECTIVE FINDINGS Following induction of adequate spinal anesthesia, the patient was prepped and draped supine on the operating table in the left lateral tilt position in the usual sterile fashion with the bladder being drained via Sutton catheterization. The abdomen was opened through a Pfannenstiel incision using a knife to cut down the skin to the fascia. The fascia opened transversely, stripped from the muscles. Rectus muscle split in the midline and the peritoneum opened sharply without incident. The bladder flap was taken down sharply, retracted inferiorly with a Shelby blade. The lower uterine segment was incised transversely with a knife and extended with blunt dissection. Membranes were ruptured revealing clear fluid. The baby was in the LOT position. With kiln transfer operator guidance and fundal pressure, the head delivered, the mouth suctioned, the cord clamped and cut and the baby passed to the awaiting team, a viable vigorous female, 's 6 and 9, weight 5 pounds 3 ounces. Cord blood was collected for typing and placenta sent for donation and the cavity wiped cleaned with laps. The uterus exteriorized and closed in two layers with a running suture, first with a running locking stitch of 0-Vicryl, second running imbricating stitch of 0-Vicryl. Posterior inspection revealed a normal uterus, tubes and ovaries. The uterus was placed in the cavity. Irrigation was performed. No bleeding was evident and the bladder flap was closed with running stitch of 3-0 Vicryl. All laps and retractors were removed. Counts were correct. The anterior peritoneum closed with a running stitch of 2-0 Vicryl. The fascia with a running locking stitch of 0-Vicryl corner to midline and tied, subcu with running 3-0 Vicryl and the skin with a running subcuticular 3-0 Monocryl. Dermabond applied. All counts correct. The patient was awakened taken to the recovery room in good condition. MD SHANICE Hilton/DJL /10:57 PM /6:46 AM
[2017-01-22] MEDS: SODIUM CHLORIDE 0.9% FLUSH 10 ML FLUSH IV FLUSH SCH ×2 (07:43→20:07)
[2017-01-22] MEDS: LORATADINE 10 MG TAB PO SCH (11:05)
[2017-01-22] MEDS: OXYMETAZOLINE HCL 0.05% 15 ML NASAL SPRAY NASAL PRN (11:05)
[2017-01-22] MEDS: LACTATED RINGER'S 1000 ML INJ 1,000 ML IV SCH ×3 (11:24→18:04)
[2017-01-22] MEDS: MAGNESIUM SULFATE 40 GM PREMIX 1,000 ML IV SCH (19:07)
[2017-01-22] MEDS: IBUPROFEN 600 MG TAB PO PRN (20:07)
[2017-01-23] MEDS: IBUPROFEN 600 MG TAB PO PRN ×4 (02:55→20:53)
[2017-01-23 08:00] VITALS: BP 128/95; PULSE 77; RESP 16; TEMP 98.1; O2SAT 97
[2017-01-23] MEDS ORDERED: DIPHTH/TETANUS/ACEL PERTUSSIS (BOOSTER) 0.5 ML VIAL/PFS IM ONE (09:00)
[2017-01-23] MEDS: ACETAMINOPHEN 325 MG TAB PO PRN ×3 (09:21→20:55)
[2017-01-23] MEDS: LABETALOL HCL 100 MG TAB PO SCH ×2 (09:21→20:53)
[2017-01-23] MEDS: LORATADINE 10 MG TAB PO SCH (09:21)
[2017-01-23] MEDS: OXYMETAZOLINE HCL 0.05% 15 ML NASAL SPRAY NASAL PRN ×2 (09:21→17:23)
[2017-01-23 12:00] VITALS: BP 124/86; PULSE 91; RESP 18; TEMP 98.2; O2SAT 97
[2017-01-23 16:00] VITALS: BP 127/88; PULSE 97
[2017-01-23 19:19] VITALS: BP 131/87; PULSE 88; RESP 18; TEMP 98
[2017-01-24] VITALS: BP 128/75; PULSE 83; RESP 18; TEMP 98.2
[2017-01-24] MEDS: ACETAMINOPHEN 325 MG TAB PO PRN (02:56)
[2017-01-24] MEDS: IBUPROFEN 600 MG TAB PO PRN ×2 (02:56→11:47)
[2017-01-24 03:33] VITALS: BP 141/97; PULSE 70; RESP 18; TEMP 97.3; O2SAT 98
[2017-01-24] MEDS ORDERED: LABE100T2 PO (07:06)
--- NOTE | 2017-01-24 07:07 | HHI.DCPOC ---
Discharge Care Plan Report Symptoms to Your Doctor -Temperature above 100.5 degrees -Redness, of incision or excessive or foul smelling drainage -Unusual pain or calf pain -Increased vaginal bleeding -Painful or difficulty urinating -Feelings of extreme sadness or anxiety after 2 weeks Goals to Promote Your Health * To prevent worsening of your condition and complications * To maintain your health at the optimal level Directions to Meet Your Goals Take your medications as prescribed Follow your dietary instruction Follow activity as directed Ensure plenty of rest for recovery Drink fluids for hydration Keep your appointments as scheduled Take your immunizations and boosters as scheduled If your symptoms worsen call your PCP, if no PCP go to Urgent Care Center or Emergency Room Smoking is Dangerous to Your Health. Avoid second hand smoke Call the 24-hour crisis hotline for domestic abuse at Aime Calles MD Jan 24, 2017 07:07
[2017-01-24 08:00] VITALS: BP 119/82; PULSE 87; RESP 18; TEMP 98.2; O2SAT 98
[2017-01-24] MEDS: LORATADINE 10 MG TAB PO SCH (11:47)
[2017-01-24] MEDS: LABETALOL HCL 100 MG TAB PO SCH (11:47)
[2017-01-24] MEDS: OXYMETAZOLINE HCL 0.05% 15 ML NASAL SPRAY NASAL PRN (11:48)
[2017-01-24 12:00] VITALS: BP 129/90; PULSE 88; RESP 18; TEMP 97.8; O2SAT 99
--- NOTE | 2017-01-25 20:16 | MD ---
cc: ARABELLA AHMADI ADMISSION DATE: 01/21/2017 DISCHARGE DATE: 01/24/2017 ADMISSION DIAGNOSIS 1. at 35 weeks. 2. Recurrent severe preeclampsia. 3. Previous . DISCHARGE DIAGNOSIS 1. at 35 weeks. 2. Recurrent severe preeclampsia. 3. Previous . 4. Delivered HISTORY OF PRESENT ILLNESS The patient is a 31-year-old white female para 0-1-0-1 with an LMP of 05/20/2016, EDC of 02/24/2017 by dates, 02/27/2017 by early ultrasound. The patient has history of severe preeclampsia with first delivery required at 34-35 weeks. She had elevated blood pressure for approximately 1 week prior to admission. Previous week had been hospitalized 23 hours, received steroids and lab studies showed a 24-hour urine protein of 491 mg for 24 hours. She was admitted on the evening of 01/21/2018 with unrelenting headache since the morning of 01/20/2017 and relieved by Tylenol, rest, Fioricet and Maxalt. Headache resembled her previous headache preceding preeclampsia. Her laboratory studies on day of admission were normal. Delivery was recommended and performed on the evening of 01/21/2017, had a viable vigorous female, Apgars were 6 and 9, weight 5 pounds 3 ounces. Baby's name was Marlee. She was breast-feeding. Baby required NICU evaluation and treatment for oral gastric feeding, with O2. Mom received mag sulfate for 24 hours and was placed on labetalol 100 mg p.o. b.i.d. 60 on the second postoperative day. Hr pre and postop labs were normal. She was advised NPV light activity, no driving, return to see me in 1 week. She will take Tylenol or Motrin for pain relief and labetalol 100 mg by mouth twice a day for blood pressure. She will call me for any abnormal symptoms. MD SHANICE Hilton/ /7:13 AM /8:08 PM
== END 2017-01-24 16:33 | disposition home or self-care (01) | DRG 766 ==
LOC: HOBED 17:47 → H2EB 21:27 → H2EA 01-22 02:36 → H1EA 01-22 20:44
PROVIDERS: ADMIT Obstetrics & Gynecology; ATTEND Obstetrics & Gynecology
PROC: 10D00Z1 Extraction of Products of Conception, Low, Open Approach (ICD-10-PCS; principal; 2017-01-21)
DX: O14.14 Severe pre-eclampsia complicating childbirth (principal); Z37.0 Single live birth; O34.211 Maternal care for low transverse scar from previous cesarean delivery; Z3A.35 35 weeks gestation of pregnancy
CPT/HCPCS: 80048; 80053; 81001; 83735; 84550; 85025; 85027; 86850; 86900; 86901; 90715; J0131; J0690; J1200; J1885; J2405; J3475; J7120

== ENCOUNTER 2017-02-08 19:26 | Emergency (ER) | payer OTHER ==
[~2017-02-08] VITALS: Ht 170.2 cm; Wt 75.0 kg
[~2017-02-08 19:26] MED LIST changes: +LABE100T2 PO
[2017-02-08 19:28] VITALS: BP 125/78; PULSE 108; RESP 16; TEMP 98.3; O2SAT 98
--- NOTE | 2017-02-08 20:46 | PD ---
HPI Chief Complaint: Fever Time Seen by Provider: 19:57 Travel History International Travel<30 days: No Contact w/Intl Traveler<30days: No Traveled to known affect area: No History of Present Illness HPI So 32 year-old woman presents to the emergency department complaining of fever. She is status post delivery 18 days ago at 34 weeks for preeclampsia with elevated blood pressure and headache. She's done well. She has some pain and tenderness in her breast especially her right breast this a little bit of red streaking. She's pumping. Baby just came home 2 days ago. 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 She otherwise has been feeling generally well and healthy prior to this. Headache is resolved in the past couple weeks after delivery. She's had some recurrence of her headache now. No cough cold symptoms. No other associated complaints. No urinary symptoms. A little bit of spotting. History Past Medical History Medical History: Denies Significant Hx Tetanus Vaccination: < 5 Years Influenza Vaccination: Yes LMP: had 18 days ago Social History Alcohol Use: Yes (socially) Tobacco Use: No Allergies-Medications (Allergen,Severity, Reaction): Coded Allergies: No Known Allergies (Unverified Allergy, Unknown, 02/08/17) Reported Meds & Prescriptions Reported Meds & Active Scripts Active Labetalol (Labetalol HCl) 100 Mg Tab 100 Mg PO BID Reported Fioricet (Ggmpqkalgx-Deojskmevexwy-Hcrraxkr) 50-300-40 Mg Cap 1 Cap PO Q4-6H PRN Gummies (Kit524/FA/Omega3/Dha/Fish Oil) 400 Mcg-32.5 Mg (25 Mg-7.5 Mg) Tab.chew 2 Chew PO DAILY Review of Systems Except as stated in HPI: all other systems reviewed are Neg Physical Exam Narrative GENERAL: 32 year-old woman, generally well-appearing, no acute distress. SKIN: Focused skin assessment warm/dry. HEAD: Atraumatic. Normocephalic. EYES: Pupils equal and round. No scleral icterus. No injection or drainage. ENT: No nasal bleeding or discharge. Mucous membranes pink and moist. TMs normal. Throat is normal. NECK: Trachea midline. No significant adenopathy. CARDIOVASCULAR: Regular rate and rhythm. No murmur appreciated. RESPIRATORY: No accessory muscle use. Clear to auscultation. Breath sounds equal bilaterally. BREASTS: Pendulous breasts. Symmetric. Lactating with a little bit of discharge. She also little bit of erythematous streaking especially in the upper outer quadrant on the right breast. Otherwise unremarkable. Moderate tenderness. GASTROINTESTINAL: Abdomen soft, non-tender, nondistended. Hepatic and splenic margins not palpable. MUSCULOSKELETAL: No obvious deformities. No edema. NEUROLOGICAL: Awake and alert. No obvious cranial nerve deficits. Motor grossly within normal limits. Normal speech. PSYCHIATRIC: Appropriate mood and affect; insight and judgment normal. Data Data Last Documented VS Vital Signs Date Time Temp Pulse Resp B/P (MAP) Pulse Ox O2 Delivery O2 Flow Rate FiO2 02/08/17 20:49 100.3 02/08/17 19:28 108 16 98 Room Air Orders Orders Complete Blood Count With Diff (02/08/17 20:10) Comprehensive Metabolic Panel (02/08/17 20:10) Ldh Serum (02/08/17 20:10) Iv Access Insert/Monitor (02/08/17 20:10) Influenzae A/B Antigen (02/08/17 20:10) Urinalysis - C+S If Indicated (02/08/17 20:10) Acetaminophen (Tylenol) (02/08/17 21:00) Sodium Chlor 0.9% 1000 Ml Inj (Ns 1000 M (02/08/17 21:00) Prochlorperazine Inj (Compazine Inj) (02/08/17 22:15) Diphenhydramine Inj (Benadryl Inj) (02/08/17 22:15) Cefazolin Inj (Ancef Inj) (02/08/17 22:30) Labs Laboratory Tests Test 02/08/17 20:15 02/08/17 21:00 White Blood Count 11.9 TH/MM3 Red Blood Count 4.25 MIL/MM3 Hemoglobin 13.6 GM/DL Hematocrit 40.7 % Mean Corpuscular Volume 95.8 FL Mean Corpuscular Hemoglobin 31.9 PG Mean Corpuscular Hemoglobin Concent 33.4 % Red Cell Distribution Width 14.1 % Platelet Count 243 TH/MM3 Mean Platelet Volume 8.1 FL Neutrophils (%) (Auto) 88.2 % Lymphocytes (%) (Auto) 7.8 % Monocytes (%) (Auto) 3.5 % Eosinophils (%) (Auto) 0.1 % Basophils (%) (Auto) 0.4 % Neutrophils # (Auto) 10.5 TH/MM3 Lymphocytes # (Auto) 0.9 TH/MM3 Monocytes # (Auto) 0.4 TH/MM3 Eosinophils # (Auto) 0.0 TH/MM3 Basophils # (Auto) 0.0 TH/MM3 CBC Comment DIFF FINAL Differential Comment Blood Urea Nitrogen 16 MG/DL Creatinine 1.19 MG/DL Random Glucose 120 MG/DL Total Protein 7.6 GM/DL Albumin 3.5 GM/DL Calcium Level 7.9 MG/DL Alkaline Phosphatase 102 U/L Aspartate Amino Transf (AST/SGOT) 19 U/L Alanine Aminotransferase (ALT/SGPT) 22 U/L Lactate Dehydrogenase 207 U/L Total Bilirubin 0.3 MG/DL Sodium Level 138 MEQ/L Potassium Level 3.4 MEQ/L Chloride Level 106 MEQ/L Carbon Dioxide Level 22.8 MEQ/L Anion Gap 9 MEQ/L Estimat Glomerular Filtration Rate 53 ML/MIN Urine Color YELLOW Urine Turbidity CLEAR Urine pH 5.5 Urine Specific [place] 1.017 Urine Protein NEG mg/dL Urine Glucose (UA) NEG mg/dL Urine Ketones NEG mg/dL Urine Occult Blood NEG Urine Nitrite NEG Urine Bilirubin NEG Urine Urobilinogen LESS THAN 2.0 MG/DL Urine Leukocyte Esterase NEG Urine WBC LESS THAN 1 /hpf Urine Squamous Epithelial Cells 1 /hpf Microscopic Urinalysis Comment CULT NOT INDICATED MDM Medical Decision Making Medical Screen Exam Complete: Yes Emergency Medical Condition: Yes Interpretation(s) LABS: CBC remarkable for mild leukocytosis. CMP remarkable for minimally elevated creatinine. Glucose 120 LDH 207 UA is unremarkable. Influenza negative. Differential Diagnosis Infection, mastitis, endometritis, URI, influenza, other Narrative Course Medical decision-making 32 year-old woman, 18 days , fever without much other symptoms. Some breast tenderness, and a little bit of erythematous streaking on the right breast. Suspect mastitis. No URI symptoms. We'll check flu. Abdomen is benign without evidence of endometritis. Patient with some headache a mildly elevated blood pressure. We'll check urine for protein and LDH. Physician Communication Physician Communication Spoke with Dr. Marcum, OB hospitalist, reviewing laboratory findings, physical exam findings, and my suspicion for mastoiditis. Agrees with treatment plan. Recommend close outpatient follow-up and return for worsening symptoms. Diagnosis Primary Impression: Fever Additional Impression: Mastitis Patient Instructions: General Instructions Additional Instructions: Take anabiotics as prescribed. Follow-up with your OB doctor in 2-3 days for repeat evaluation. Return to the emergency department for any worsening fever, pain or tenderness, or any other new or worsening symptoms. Med/Other Pt SpecificInfo: Prescription(s) given Scripts Cephalexin (Keflex) 500 Mg Cap 500 MG PO Q8H for Infection, #30 CAP 0 Refills Prov: Saul Mi MD 02/08/17 Disposition: 01 DISCHARGE HOME Condition: Stable Saul Mi MD Feb 08, 2017 20:46
[2017-02-08 20:49] VITALS: TEMP 100.3
[2017-02-08 20:49] LABS: AUTOMATED NEUTROPHIL # 10.5 TH/MM3 (1.8-7.7); BASOPHIL % 0.4 % (0.0-2.0); EOSINOPHIL % 0.1 % (0.0-4.0); HEMATOCRIT 40.7 % (35.0-46.0); HEMOGLOBIN 13.6 GM/DL (11.6-15.3); LYMPH % 7.8 % (9.0-44.0); LYMPHOCYTE # 0.9 TH/MM3 (1.0-4.8); MEAN CELL VOLUME 95.8 FL (80.0-100.0); MEAN CORPUSCULAR HEMOGLOBIN 31.9 PG (27.0-34.0); MEAN CORPUSCULAR HGB CONC 33.4 % (32.0-36.0); MEAN PLATELET VOLUME 8.1 FL (7.0-11.0); MONO % 3.5 % (0.0-8.0); MONOCYTE # 0.4 TH/MM3 (0-0.9); NEUT % 88.2 % (16.0-70.0); PLATELET COUNT 243 TH/MM3 (150-450); RED BLOOD COUNT 4.25 MIL/MM3 (4.00-5.30); RED CELL DISTRIBUTION WIDTH 14.1 % (11.6-17.2); WHITE BLOOD COUNT 11.9 TH/MM3 (4.0-11.0)
[2017-02-08] MEDS ORDERED: ACETAMINOPHEN 325 MG TAB PO ONE (21:00)
[2017-02-08] MEDS ORDERED: SODIUM CHLOR 0.9% 1000 ML INJ 1,000 ML IV ONE (21:00)
[2017-02-08 22:02] LABS: BILIRUBIN, URINE NEG (NEG); BLOOD, URINE NEG (NEG); GLUCOSE,URINE NEG (NEG); KETONE, URINE NEG (NEG); NITRITE,URINE NEG (NEG); PH, URINE 5.5 (5.0-8.5); SQUAMOUS EPITHELIAL CELL URINE 1 /hpf (0-5); URINE COLOR YELLOW (YELLW/STRAW); URINE LEUKOCYTE ESTERASE NEG (NEG)
[2017-02-08 22:14] LABS: ALBUMIN 3.5 GM/DL (3.4-5.0); BICARBONATE 22.8 MEQ/L (21.0-32.0); BLOOD UREA NITROGEN 16 MG/DL (7-18); CALCIUM 7.9 MG/DL (8.5-10.1); CHLORIDE 106 MEQ/L (98-107); CREATININE 1.19 MG/DL (0.50-1.00); GLOMERULAR FILTRATION RATE 53 ML/MIN (>89); GLUCOSE,RANDOM 120 MG/DL (74-106); SODIUM (NA) 138 MEQ/L (136-145)
[2017-02-08] MEDS ORDERED: PROCHLORPERAZINE INJ 10 MG/2 ML VIAL IV PUSH ONE (22:15)
[2017-02-08] MEDS ORDERED: diphenhydrAMINE HCL 50 MG/ML VIAL IV PUSH ONE (22:15)
[2017-02-08 22:19] LABS: ALKALINE PHOSPHATASE 102 U/L (45-117); ALT (GPT) 22 U/L (10-53); AST (GOT) 19 U/L (15-37); LDH SERUM 207 U/L (84-246); TOTAL BILIRUBIN ADULT 0.3 MG/DL (0.2-1.0); TOTAL PROTEIN 7.6 GM/DL (6.4-8.2)
[2017-02-08 22:28] VITALS: BP 128/84; PULSE 99; RESP 17; O2SAT 99
[2017-02-08] MEDS ORDERED: CEPH-460 PO (22:45)
== END 2017-02-08 23:17 | disposition home or self-care (01) ==
LOC: NEPE 19:26
DX: O86.4 Pyrexia of unknown origin following delivery (principal); N61.0 Mastitis without abscess; R51 Headache; D72.829 Elevated white blood cell count, unspecified; Z79.899 Other long term (current) drug therapy
CPT/HCPCS: 80053; 81001; 83615; 85025; 87804; 96361; 96365; 96375; 99284; J0690; J0780; J1200; J7030